=== PATIENT | female | born 1975 | race Caucasian/White ===

== ENCOUNTER 2018-07-14 07:32 | Emergency (ER) | payer SELFPAY ==
[2018-07-14 07:47] VITALS: BP 151/99
--- NOTE | 2018-07-14 08:07 | EDM.PDOC ---
ED HPI GENERAL MEDICAL PROBLEM - General Chief Complaint: Upper Extremity Injury/Pain Stated Complaint: FELL LEAVING WORK Time Seen by Provider: 07/14/18 07:56 Source of Information: Reports: Patient, RN Notes Reviewed History Limitations: Reports: No Limitations - History of Present Illness INITIAL COMMENTS - FREE TEXT/NARRATIVE: 42-year-old female presents emergency department today following a fall at work she was at the end of her shift had walked out into the employee parking lot slipped and fell on her left side she is complaining of left wrist pain some left shoulder stiffness left knee pain no other complaints denies any head injury or loss of consciousness Wrist Pain Score (Numeric/FACES): 4 - Related Data Allergies Allergy/AdvReac Type Severity Reaction Status Date / Time aspirin Allergy Swollen Verified 07/14/18 07:47 Eyes diclofenac Allergy Nausea Verified 07/14/18 07:47 NSAIDS (Non-Steroidal Allergy Swollen Verified 07/14/18 07:47 Anti-Inflamma Eyes Penicillins Allergy Rash Verified 07/14/18 07:47 Sulfa (Sulfonamide Allergy Rash Verified 07/14/18 07:47 Antibiotics) Home Meds: Home Meds Acetaminophen 1,000 mg PO Q6H 03/16/16 [History] Levonorgestrel [Mirena] 52 mg IN ASDIRECTED 03/16/16 [History] 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: - Musculoskeletal History: Reports: Osteoarthritis Other Musculoskeletal History: - - Infectious Disease History Infectious Disease History: Reports: Chicken Pox - Past Surgical History HEENT Surgical History: Reports: Tonsillectomy GI Surgical History: Reports: Cholecystectomy Musculoskeletal Surgical History: Reports: Arthroscopic Knee, Knee Replacement Social & Family History - Tobacco Use Smoking Status *Q: Never Smoker Second Hand Smoke Exposure: No - Caffeine Use Caffeine Use: Reports: Coffee - Alcohol Use Days Per Week of Alcohol Use: 1 Number of Drinks Per Day: 5 Total Drinks Per Week: 5 - Recreational Drug Use Recreational Drug Use: No Review of Systems - Review of Systems Review Of Systems: See Below Musculoskeletal: Reports: Shoulder Pain, Hand Pain, Joint Pain (Knee pain) Skin: Reports: No Symptoms ED EXAM, GENERAL - Physical Exam Exam: See Below Free Text/Narrative:: Examination left wrist I do not appreciate any edema there is no erythema noted she has full range of motion all digits radial pulses +2 she has limited range of motion of the wrist. Examination of the left erythema there is no edema there is no specific joint line tenderness anterior drawer is negative Lissa' s maneuvers also negative knee I don't appreciate any shoulder I don't appreciate any specific point tenderness she has full range of motion of shoulder, Exam Limited By: No Limitations General Appearance: Alert, WD/WN, No Apparent Distress Respiratory/Chest: No Respiratory Distress Course - Vital Signs Last Recorded V/S: Last Vital Signs Temp 96 F 07/14/18 07:46 Pulse 67 07/14/18 07:46 Resp 16 07/14/18 07:46 BP 151/99 H 07/14/18 07:46 Pulse Ox 98 07/14/18 07:46 Departure - Departure Time of Disposition: 08:07 Disposition: Home, Self-Care 01 Condition: Fair Clinical Impression: Left wrist sprain Qualifiers: Encounter type: initial encounter Qualified Code(s): S63.502A - Unspecified sprain of left wrist, initial encounter Contusion of left knee Qualifiers: Encounter type: initial encounter Qualified Code(s): S80.02XA - Contusion of left knee, initial encounter Contusion of left shoulder Qualifiers: Encounter type: initial encounter Qualified Code(s): S40.012A - Contusion of left shoulder, initial encounter - Discharge Information Referrals: PCP,None [Primary Care Provider] - Additional Instructions: use Tylenol as needed for pain control, try Flexeril as needed for muscle relaxant, Please followup with your primary care provider in 3-5 days if not better, please call return to the emergency department with worsening of symptoms. - Assessment/Plan Plan: Assessment Acuity = acute Site and laterality = left wrist sprain left knee contusion left shoulder contusion Etiology = secondary to a fall on ice Manifestations = pain Location of injury = work Lab values = left wrist x-ray negative for fracture Plan Use Tylenol as needed for pain control, Flexeril 10 mg by mouth 3 times a day when necessary total #15 given for muscle relaxant, follow-up primary care 3-5 days if no improvement This note was dictated using Chartio recognition software please call with any questions on syntax or grammar.
== END 2018-07-14 08:16 | disposition home or self-care (01) ==
LOC: JP.ED 07:32
DX: S63.502A Unspecified sprain of left wrist, initial encounter (principal); S80.02XA Contusion of left knee, initial encounter; S40.012A Contusion of left shoulder, initial encounter; Z88.8 Allergy status to other drugs, medicaments and biological substances; Z88.2 Allergy status to sulfonamides; Z88.0 Allergy status to penicillin; W19.XXXA Unspecified fall, initial encounter
CPT/HCPCS: 99283

== ENCOUNTER 2019-02-23 18:38 | Emergency (ER) | payer BC, OTHER ==
[2019-02-23] MEDS ORDERED: diphenhydrAMINE 50 MG/ML SDV IVPUSH ONE (18:54)
[2019-02-23] MEDS ORDERED: Acetaminophen 1,000 MG in Premix Bag 1 BAG IV ONE (18:54)
[2019-02-23] MEDS ORDERED: Lactated Ringers 1,000 ML IV ONE ×2 (18:54→20:29)
[2019-02-23] MEDS ORDERED: Prochlorperazine 10 MG/2 ML SDV IVPUSH ONE (18:54)
[2019-02-23] MEDS ORDERED: Sodium Chloride 0.9% 10 ML Syringe FLUSH PRN (18:55)
[2019-02-23] MEDS ORDERED: diphenhydrAMINE 50 MG/ML SDV ONE (19:00)
--- NOTE | 2019-02-23 19:00 | EDM.PDOC ---
ED HPI GENERAL MEDICAL PROBLEM - General Chief Complaint: Headache Stated Complaint: HEADACHE Time Seen by Provider: 02/23/19 18:54 Source of Information: Reports: Patient, RN Notes Reviewed History Limitations: Reports: No Limitations - History of Present Illness INITIAL COMMENTS - FREE TEXT/NARRATIVE: 43-year-old female presents emergency department today with complaint of headache, she states this feels like a migraine for her she has had migraines like this in the past however it is been a long time. Is predominantly on the right side she states it started earlier this morning is progressively gotten worse she is nauseated and does have photophobia did use Tylenol with minimal relief Headache Pain Score (Numeric/FACES): 8 - Related Data Allergies Allergy/AdvReac Type Severity Reaction Status Date / Time aspirin Allergy Swollen Verified 02/23/19 19:25 Eyes diclofenac Allergy Nausea Verified 02/23/19 19:25 NSAIDS (Non-Steroidal Allergy Swollen Verified 02/23/19 19:25 Anti-Inflamma Eyes Penicillins Allergy Rash Verified 02/23/19 19:25 Sulfa (Sulfonamide Allergy Rash Verified 02/23/19 19:25 Antibiotics) Home Meds: Home Meds Acetaminophen 1,000 mg PO Q6H 03/16/16 [History] Levonorgestrel [Mirena] 52 mg IN ASDIRECTED 03/16/16 [History] 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: - Musculoskeletal History: Reports: Osteoarthritis Other Musculoskeletal History: - - Infectious Disease History Infectious Disease History: Reports: Chicken Pox - Past Surgical History HEENT Surgical History: Reports: Tonsillectomy GI Surgical History: Reports: Cholecystectomy Musculoskeletal Surgical History: Reports: Arthroscopic Knee, Knee Replacement Social & Family History - Tobacco Use Smoking Status *Q: Never Smoker - Caffeine Use Caffeine Use: Reports: Coffee ED ROS GENERAL - Review of Systems Review Of Systems: See Below Constitutional: Denies: Fever, Chills HEENT: Reports: Eye Pain Respiratory: Reports: No Symptoms Cardiovascular: Reports: No Symptoms GI/Abdominal: Reports: Nausea : Reports: No Symptoms Neurological: Reports: Headache - Physical Exam Exam: See Below Exam Limited By: No Limitations General Appearance: Alert, Mild Distress Eye Exam: Bilateral Eye: EOMI, Normal Fundi, Normal Inspection, PERRL Throat/Mouth: No Airway Compromise Respiratory/Chest: No Respiratory Distress Course - Vital Signs Last Recorded V/S: Last Vital Signs Temp 96.3 F 02/23/19 19:17 Pulse 62 02/23/19 19:41 Resp 16 02/23/19 19:41 BP 143/87 H 02/23/19 19:41 Pulse Ox 98 02/23/19 19:41 - Orders/Labs/Meds Orders: Active Orders 24 hr Category Date Time Status Peripheral IV Care [RC] . DIRECTED Care 02/23/19 18:55 Active Sodium Chloride 0.9% [Saline Flush] Med 02/23/19 18:55 Active 10 ml FLUSH ASDIRECTED PRN Peripheral IV Insertion Adult [OM.PC] Urgent Oth 02/23/19 18:55 Ordered Medication Orders Sodium Chloride (Saline Flush) 10 ml FLUSH ASDIRECTED PRN PRN Reason: Keep Vein Open Last Admin: 02/23/19 19:07 Dose: 10 ml Meds: Medications Generic Name Dose Route Start Last Admin Trade Name Freq PRN Reason Stop Dose Admin Sodium Chloride 10 ml 02/23/19 18:55 02/23/19 19:07 Saline Flush FLUSH 10 ml ASDIRECTED PRN Administration Keep Vein Open Discontinued Medications Generic Name Dose Route Start Last Admin Trade Name Freq PRN Reason Stop Dose Admin Diphenhydramine HCl 50 mg 02/23/19 18:54 02/23/19 19:07 Benadryl IVPUSH 02/23/19 18:55 50 mg ONETIME ONE Administration Acetaminophen 1,000 mg/ Premix 100 mls @ 400 mls/hr 02/23/19 18:54 02/23/19 19:08 IV 02/23/19 19:08 400 mls/hr NOW ONE Administration Lactated Ringer's 1,000 mls @ 999 mls/hr 02/23/19 18:54 02/23/19 19:10 Ringers, Lactated IV 02/23/19 19:54 999 mls/hr BOLUS ONE Administration Lactated Ringer's 1,000 mls @ 999 mls/hr 02/23/19 20:29 02/23/19 20:15 Ringers, Lactated IV 02/23/19 21:29 999 mls/hr BOLUS ONE Administration Lorazepam 0.5 mg 02/23/19 21:23 02/23/19 21:31 Ativan IVPUSH 02/23/19 21:24 0.5 mg ONETIME ONE Administration Prochlorperazine Edisylate 5 mg 02/23/19 18:54 02/23/19 19:07 Compazine IVPUSH 02/23/19 18:55 5 mg ONETIME ONE Administration Departure - Departure Time of Disposition: 22:15 Disposition: Home, Self-Care 01 Condition: Fair Clinical Impression: Migraine - Discharge Information Instructions: Migraine Headache, [id number] Forms: ED Department Discharge Additional Instructions: Continue with regular medications, please followup with your primary care provider in 3-5 days if not better, please call return to the emergency department with worsening of symptoms. - My Orders Last 24 Hours: My Active Orders 02/23/19 18:55 Peripheral IV Care [RC] . DIRECTED Sodium Chloride 0.9% [Saline Flush] 10 ml FLUSH ASDIRECTED PRN Peripheral IV Insertion Adult [OM.PC] Urgent - Assessment/Plan Last 24 Hours: My Active Orders 02/23/19 18:55 Peripheral IV Care [RC] . DIRECTED Sodium Chloride 0.9% [Saline Flush] 10 ml FLUSH ASDIRECTED PRN Peripheral IV Insertion Adult [OM.PC] Urgent Plan: Assessment Acuity = acute Site and laterality = migraine type headache Etiology = unknown Manifestations = nausea Location of injury = Home Lab values = none Plan Good improvement to 2 L of fluid, Tylenol, Benadryl and Compazine as well as half milligram Ativan plans discharge home follow primary care as needed This note was dictated using Zuora voice recognition software please call with any questions on syntax or grammar.
[2019-02-23] MEDS ORDERED: Prochlorperazine 10 MG/2 ML SDV ONE (19:01)
[2019-02-23 19:41] VITALS: BP 143/87; PULSE 62
[2019-02-23] MEDS ORDERED: LORazepam 2 MG/ML SDV IVPUSH ONE (21:23)
== END 2019-02-23 22:35 | disposition home or self-care (01) ==
LOC: JP.ED 18:38
DX: G43.909 Migraine, unspecified, not intractable, without status migrainosus (principal); Z88.6 Allergy status to analgesic agent; Z88.0 Allergy status to penicillin; Z88.2 Allergy status to sulfonamides
CPT/HCPCS: 96361; 96365; 96375; 99284; J0131; J0780; J1200; J2060; J7120

== ENCOUNTER 2019-12-08 01:33 | Emergency (ER) | payer BC ==
[2019-12-08 01:44] VITALS: BP 149/90; PULSE 92
[2019-12-08] MEDS ORDERED: Tetracaine HCl/PF 0.5% 4 ML Bottle EYERT ONE (01:46)
[2019-12-08] MEDS ORDERED: Diphtheria,Pertussis(Acell),Tetanus Vaccine 0.5 ML SDV IM ONE (02:02)
[2019-12-08] MEDS ORDERED: Acetaminophen/oxyCODONE 325-5 MG Tab PO STA (02:02)
--- NOTE | 2019-12-08 02:08 | EDM.PDOC ---
ED HPI GENERAL MEDICAL PROBLEM - General Chief Complaint: Eye Problems Stated Complaint: SCRATCHED EYE Time Seen by Provider: 12/08/19 01:50 Source of Information: Reports: Patient, Old Records, RN History Limitations: Reports: No Limitations - History of Present Illness INITIAL COMMENTS - FREE TEXT/NARRATIVE: 44 yo female scratched her R eye tonight. Presents with pain and tearing and photophobia. Last tetanus was 7 yrs ago. 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) (none) - Related Data Allergies Allergy/AdvReac Type Severity Reaction Status Date / Time aspirin Allergy Swollen Verified 12/08/19 01:39 Eyes diclofenac Allergy Nausea Verified 12/08/19 01:39 NSAIDS (Non-Steroidal Allergy Swollen Verified 12/08/19 01:39 Anti-Inflamma Eyes Penicillins Allergy Rash Verified 12/08/19 01:39 Sulfa (Sulfonamide Allergy Rash Verified 12/08/19 01:39 Antibiotics) Home Meds: Home Meds Acetaminophen 1,000 mg PO Q6H PRN 03/16/16 [History] Levonorgestrel [Mirena] 52 mg IN ASDIRECTED 03/16/16 [History] 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: - Musculoskeletal History: Reports: Osteoarthritis Other Musculoskeletal History: - - Infectious Disease History Infectious Disease History: Reports: Chicken Pox - Past Surgical History HEENT Surgical History: Reports: Tonsillectomy GI Surgical History: Reports: Cholecystectomy Musculoskeletal Surgical History: Reports: Arthroscopic Knee, Knee Replacement Social & Family History - Caffeine Use Caffeine Use: Reports: Coffee ED ROS GENERAL - Review of Systems Review Of Systems: See Below Constitutional: Reports: No Symptoms HEENT: Reports: Eye Discharge (watering), Eye Pain (right eye), Vision Change (slight blurring of the R eye) Skin: Reports: No Symptoms Neurological: Reports: No Symptoms ED EXAM GENERAL W FULL EYE - Physical Exam Exam: See Below Exam Limited By: No Limitations General Appearance: Alert, WD/WN, No Apparent Distress Eye Exam: Right Eye: Corneal Abrasion (upper cornea, horizontal scratch), Bilateral Eye: EOMI, PERRL Eyelids: Bilateral: Normal Appearance Conjunctiva & Sclera: Right: Injected Cornea Exam: Right: Corneal Abrasion, Examined with Flourescein Extraocular Movements: Bilateral: Intact Pupillary Size: Bilateral: 3 mm Ears: Hearing Grossly Normal Course - Vital Signs Last Recorded V/S: Last Vital Signs Temp 36.2 C 12/08/19 01:55 Pulse 92 12/08/19 01:55 Resp 16 12/08/19 01:55 BP 149/90 H 12/08/19 01:55 Pulse Ox 100 12/08/19 01:55 - Orders/Labs/Meds Orders: Active Orders 24 hr Category Date Time Status Vaccines to be Administered [RC] PER UNIT ROUTINE Care 12/08/19 02:02 Ordered Acetaminophen/oxyCODONE [Percocet 325-5 MG] Med 12/08/19 02:02 Stat 1 tab PO ONETIME STA Diphth,Pertuss(Acell),Tet Vac [Adacel] Med 12/08/19 02:02 Once 0.5 ml IM .ONCE ONE Meds: Medications Discontinued Medications Generic Name Dose Route Start Last Admin Trade Name Freq PRN Reason Stop Dose Admin Tetracaine HCl 1 ml 12/08/19 01:46 12/08/19 01:52 Tetracaine 0.5% Steri-Unit [place] EYERT 12/08/19 01:47 2 drop ASDIRECTED ONE Administration Departure - Departure Time of Disposition: 02:15 Disposition: Home, Self-Care 01 Condition: Good Clinical Impression: Corneal abrasion, right Qualifiers: Encounter type: initial encounter Qualified Code(s): S05.01XA - Injury of conjunctiva and corneal abrasion without foreign body, right eye, initial encounter - Discharge Information *PRESCRIPTION DRUG MONITORING PROGRAM REVIEWED*: No *COPY OF PRESCRIPTION DRUG MONITORING REPORT IN PATIENT LORENE: No Instructions: Corneal Abrasion, [id number] Referrals: China Bobo MD [Primary Care Provider] - Additional Instructions: Avoid rubbing your right eye. Avoid lights. Take acetaminophen OR Percocet as needed for pain relief. Apply antibiotic ointment as directed on your Rx for 2 days only. Recheck if not fully healed in 48 hrs. Sepsis Event Note (ED) - Evaluation Sepsis Screening Result: No Definite Risk - Focused Exam Vital Signs: Vital Signs Temp Pulse Resp BP Pulse Ox 12/08/19 01:55 36.2 C 92 16 149/90 H 100 12/08/19 01:42 92 16 149/90 H 100 - My Orders Last 24 Hours: My Active Orders 12/08/19 02:02 Vaccines to be Administered [RC] PER UNIT ROUTINE Diphth,Pertuss(Acell),Tet Vac [Adacel] 0.5 ml IM .ONCE ONE 12/08/19 02:02 Acetaminophen/oxyCODONE [Percocet 325-5 MG] 1 tab PO ONETIME STA - Assessment/Plan Last 24 Hours: My Active Orders 12/08/19 02:02 Vaccines to be Administered [RC] PER UNIT ROUTINE Diphth,Pertuss(Acell),Tet Vac [Adacel] 0.5 ml IM .ONCE ONE 12/08/19 02:02 Acetaminophen/oxyCODONE [Percocet 325-5 MG] 1 tab PO ONETIME STA
== END 2019-12-08 02:21 | disposition home or self-care (01) ==
LOC: JP.ED 01:33
DX: S05.01XA Injury of conjunctiva and corneal abrasion without foreign body, right eye, initial encounter (principal); Z23 Encounter for immunization; Z88.8 Allergy status to other drugs, medicaments and biological substances; Z88.6 Allergy status to analgesic agent; Z88.0 Allergy status to penicillin; Z88.2 Allergy status to sulfonamides; X58.XXXA Exposure to other specified factors, initial encounter
CPT/HCPCS: 90471; 90715; 99283; A9270

== ENCOUNTER 2020-06-27 16:26 | Emergency (ER) | payer BC ==
[2020-06-27 16:39] VITALS: BP 179/92; PULSE 84
[2020-06-27] MEDS ORDERED: Sodium Chloride 0.9% 1,000 ML IV ONE (17:02)
[2020-06-27] MEDS ORDERED: Sodium Chloride 0.9% 10 ML Syringe FLUSH PRN (17:02)
[2020-06-27] MEDS ORDERED: Morphine 4 MG/ML Syringe IVPUSH ONE (17:02)
[2020-06-27] MEDS ORDERED: Promethazine 12.5 MG in Sodium Chloride 0.9% 50 ML IV ONE (17:03)
--- NOTE | 2020-06-27 18:08 | EDM.PDOC ---
ED HPI GENERAL MEDICAL PROBLEM - General Chief Complaint: Headache Stated Complaint: HEAD PAIN Time Seen by Provider: 06/27/20 16:49 Source of Information: Reports: Patient History Limitations: Reports: No Limitations - History of Present Illness INITIAL COMMENTS - FREE TEXT/NARRATIVE: Patient with known history of migraine HAs recently noted change in her HAs this past year. 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 if she gets HAs she is to take her neurontin as well as maxalt if needed. She does not take NSAIDs due to allergy (makes her face/eyes swell). She woke up with RODRIGUEZ took meds and waited for her son to get home from school to bring her to the ER since RODRIGUEZ was so severe. She states that its not better/not worse since taking medications. 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: Acetaminophen (1000mg at 1500), Cold Therapy, Other (see below) (200mg neurontin, 4mg zofran, maxalt x 1--all at 1500 as she woke up from sleep with headache) Headache Pain Score (Numeric/FACES): 8 - Related Data Allergies Allergy/AdvReac Type Severity Reaction Status Date / Time aspirin Allergy Swollen Verified 12/08/19 01:39 Eyes diclofenac Allergy Nausea Verified 12/08/19 01:39 NSAIDS (Non-Steroidal Allergy Swollen Verified 12/08/19 01:39 Anti-Inflamma Eyes Penicillins Allergy Rash Verified 12/08/19 01:39 Sulfa (Sulfonamide Allergy Rash Verified 12/08/19 01:39 Antibiotics) cinnamon Allergy Anaphylactic Uncoded 06/27/20 16:40 Shock Home Meds: Home Meds Acetaminophen 1,000 mg PO Q6H PRN 03/16/16 [History] Levonorgestrel [Mirena] 52 mg IN ASDIRECTED 03/16/16 [History] Gabapentin [Neurontin] 3 tab PO BEDTIME 06/27/20 [History] Ondansetron [Zofran ODT] 1 tab PO TID PRN 06/27/20 [History] Rizatriptan [Maxalt MANAGER CONTACT] 1 tab SL ASDIRECTED 06/27/20 [History] 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: - Musculoskeletal History: Reports: Osteoarthritis Other Musculoskeletal History: - Neurological History: Reports: Other (See Below) Other Neuro History: known mass with recent mri - Infectious Disease History Infectious Disease History: Reports: Chicken Pox - Past Surgical History HEENT Surgical History: Reports: Tonsillectomy GI Surgical History: Reports: Cholecystectomy Musculoskeletal Surgical History: Reports: Arthroscopic Knee, Knee Replacement Other Musculoskeletal Surgeries/Procedures:: - Social & Family History - Tobacco Use Tobacco Use Status *Q: Never Tobacco User - Caffeine Use Caffeine Use: Reports: Coffee ED ROS GENERAL - Review of Systems Review Of Systems: Comprehensive ROS is negative, except as noted in HPI. Constitutional: Reports: No Symptoms HEENT: Reports: Vision Change (photophobia) Respiratory: Reports: No Symptoms Cardiovascular: Reports: No Symptoms Endocrine: Reports: No Symptoms GI/Abdominal: Reports: Nausea, Vomiting : Reports: No Symptoms Musculoskeletal: Reports: No Symptoms Skin: Reports: No Symptoms Neurological: Reports: Headache. Denies: Confusion, Dizziness, Trouble Speaking, Difficulty Walking, Change in Speech, Gait Disturbance Psychiatric: Reports: No Symptoms Hematologic/Lymphatic: Reports: No Symptoms Immunologic: Reports: No Symptoms - Physical Exam Exam: See Below Exam Limited By: No Limitations General Appearance: Alert, Moderate Distress Eye Exam: Bilateral Eye: EOMI, Normal Inspection, PERRL Ears: Normal External Exam Nose: Normal Inspection Throat/Mouth: Normal Inspection, Normal Oropharynx Head Exam: Atraumatic, Normocephalic Neck: Normal Inspection, Supple, Full Range of Motion Respiratory/Chest: No Respiratory Distress, Lungs Clear, Normal Breath Sounds, No Accessory Muscle Use Cardiovascular: Normal Peripheral Pulses, Regular Rate, Rhythm, No Edema, No Murmur GI/Abdominal: Normal Bowel Sounds, Soft, Non-Tender, No Distention (Female) Exam: Deferred Rectal (Female) Exam: Deferred Neuro Exam (Abbreviated): Alert, Oriented, CN II-XII Intact, Normal Cognition, No Motor/Sensory Deficits Extremities: Normal Inspection, Normal Range of Motion, No Pedal Edema, Normal Capillary Refill Psychiatric: Normal Affect, Normal Mood Skin Exam: Warm, Dry, Intact, Normal Color Course - Vital Signs Text/Narrative:: 1800--patient recheck, improved now with pain 3-07/12. she states she would like to receive remaining IVF for full liter. ready for d/c once completed, f/u with PCM or Neurology if further concerns Last Recorded V/S: Last Vital Signs Temp 97.5 F 06/27/20 16:48 Pulse 84 06/27/20 16:48 Resp 20 06/27/20 16:48 BP 179/92 H 06/27/20 16:48 Pulse Ox 99 06/27/20 16:48 - Orders/Labs/Meds Orders: Active Orders 24 hr Category Date Time Status Sodium Chloride 0.9% [Normal Saline] 1,000 ml Med 06/27/20 17:02 Active IV .BOLUS Sodium Chloride 0.9% [Saline Flush] Med 06/27/20 17:02 Active 10 ml FLUSH ASDIRECTED PRN Saline Lock Insert [OM.PC] Routine Oth 06/27/20 17:02 Ordered Medication Orders Sodium Chloride (Normal Saline) 1,000 mls @ 999 mls/hr IV .BOLUS ONE Stop: 06/27/20 18:02 Last Admin: 06/27/20 17:25 Dose: 999 mls/hr Documented by: ROBIN Sodium Chloride (Sodium Chloride 0.9% 10 Ml Syringe) 10 ml FLUSH ASDIRECTED PRN PRN Reason: Keep Vein Open Last Admin: 06/27/20 17:26 Dose: 10 ml Documented by: ROBIN Meds: Medications Generic Name Dose Route Start Last Admin Trade Name Freq PRN Reason Stop Dose Admin Sodium Chloride 1,000 mls @ 999 mls/hr 06/27/20 17:02 06/27/20 17:25 Normal Saline IV 06/27/20 18:02 999 mls/hr .BOLUS ONE Administration Sodium Chloride 10 ml 06/27/20 17:02 06/27/20 17:26 Sodium Chloride 0.9% 10 Ml Syringe FLUSH 10 ml ASDIRECTED PRN Administration Keep Vein Open Discontinued Medications Generic Name Dose Route Start Last Admin Trade Name Freq PRN Reason Stop Dose Admin Promethazine HCl 12.5 mg/ 50.5 mls @ 200 mls/hr 06/27/20 17:03 06/27/20 17:25 Sodium Chloride IV 06/27/20 17:18 200 mls/hr ONETIME ONE Administration Morphine Sulfate 4 mg 06/27/20 17:02 06/27/20 17:25 Morphine 4 Mg/Ml Syringe IVPUSH 06/27/20 17:03 4 mg ONETIME ONE Administration Departure - Departure Time of Disposition: 18:12 Disposition: Home, Self-Care 01 Condition: Good Clinical Impression: Headache, migraine - Discharge Information *PRESCRIPTION DRUG MONITORING PROGRAM REVIEWED*: Not Applicable *COPY OF PRESCRIPTION DRUG MONITORING REPORT IN PATIENT LORENE: Not Applicable Instructions: Recurrent Migraine Headache, [id number] Referrals: China Bobo MD [Primary Care Provider] - Additional Instructions: Follow up with family doctor or neurology for further concerns, return to the ER if symptoms re-occur Sepsis Event Note (ED) - Evaluation Sepsis Screening Result: No Definite Risk - Focused Exam Vital Signs: Vital Signs Temp Pulse Resp BP Pulse Ox 06/27/20 16:48 97.5 F 84 20 179/92 H 99 06/27/20 16:37 97.5 F 84 20 179/92 H 99 - My Orders Last 24 Hours: My Active Orders 06/27/20 17:02 Sodium Chloride 0.9% [Normal Saline] 1,000 ml IV .BOLUS Sodium Chloride 0.9% [Saline Flush] 10 ml FLUSH ASDIRECTED PRN Saline Lock Insert [OM.PC] Routine - Assessment/Plan Last 24 Hours: My Active Orders 06/27/20 17:02 Sodium Chloride 0.9% [Normal Saline] 1,000 ml IV .BOLUS Sodium Chloride 0.9% [Saline Flush] 10 ml FLUSH ASDIRECTED PRN Saline Lock Insert [OM.PC] Routine
== END 2020-06-27 18:50 | disposition home or self-care (01) ==
LOC: JP.ED 16:26
DX: G43.909 Migraine, unspecified, not intractable, without status migrainosus (principal); M19.90 Unspecified osteoarthritis, unspecified site; Z88.6 Allergy status to analgesic agent; Z88.0 Allergy status to penicillin; Z88.2 Allergy status to sulfonamides; Z88.8 Allergy status to other drugs, medicaments and biological substances; Z79.899 Other long term (current) drug therapy; Z90.49 Acquired absence of other specified parts of digestive tract
CPT/HCPCS: 96374; 96375; 99283; 99283-25; J2270; J2550; J7030

== ENCOUNTER 2021-07-07 13:39 | Emergency (ER) | payer BC ==
[2021-07-07] MEDS ORDERED: Lactated Ringers 1,000 ML IV ONE ×2 (13:55→14:34)
[2021-07-07] MEDS ORDERED: diphenhydrAMINE 50 MG/ML SDV IVPUSH ONE (13:55)
[2021-07-07] MEDS ORDERED: Prochlorperazine 10 MG/2 ML SDV IVPUSH ONE (13:55)
[2021-07-07] MEDS ORDERED: Sodium Chloride 0.9% 10 ML Syringe FLUSH PRN (13:55)
[2021-07-07] MEDS ORDERED: LORazepam 2 MG/ML SDV IVPUSH ONE (13:55)
[2021-07-07 15:03] VITALS: BP 132/81; PULSE 67
== END 2021-07-07 15:59 | disposition home or self-care (01) ==
LOC: JP.ED 13:39
DX: G43.909 Migraine, unspecified, not intractable, without status migrainosus (principal); Z88.6 Allergy status to analgesic agent; Z88.0 Allergy status to penicillin; Z88.2 Allergy status to sulfonamides; Z88.8 Allergy status to other drugs, medicaments and biological substances; Z91.018 Allergy to other foods
CPT/HCPCS: 96374; 96375; 99283; 99283-25; J0780; J1200; J2060; J3490; J7120

== ENCOUNTER 2023-07-18 04:24 | Day surgery (SDC) | payer BC ==
[2023-07-18 04:44] LABS: BASOPHILS ABSOLUTE AUTO 0.05 K/uL (0.00-0.10); BASOPHILS PERCENT AUTO 0.9 % (0.1-1.3); EOSINOPHILS ABSOLUTE AUTO 0.14 K/uL (0.00-0.40); EOSINOPHILS PERCENT AUTO 2.6 % (0.0-5.4); HEMATOCRIT 42.7 % (34.3-46.0); HEMOGLOBIN 15.3 g/dL (11.2-15.5); IMMATURE GRAN PERCENT AUTO 0.2 % (0.0-0.7); LYMPHOCYTES ABSOLUTE AUTO 1.68 K/uL (0.8-3.3); LYMPHOCYTES PERCENT AUTO 31.4 % (11.4-47.7); MEAN CORPUSCULAR HEMOGLOBIN 32.6 pg (31.6-35.5); MEAN CORPUSCULAR HGB CONC 35.8 g/dL (31.6-35.5); MEAN CORPUSCULAR VOLUME 90.9 fL (81.4-99.0); MONOCYTES ABSOLUTE AUTO 0.57 K/uL (0.20-0.90); MONOCYTES PERCENT AUTO 10.7 % (3.3-12.6); NEUTROPHILS PERCENT AUTO 54.2 % (40.0-78.1); PLATELET COUNT,PLT 267 K/uL (130-375); WHITE BLOOD CELL COUNT,WBC 5.4 K/uL (3.2-11.0)
[2023-07-18 04:51] LABS: IMMATURE GRAN ABSOLUTE AUTO 0.01 K/uL (0.00-0.23)
[2023-07-18] MEDS: Alum Hydrox/Mag Hydrox/Simeth 15 ML, Lidocaine 2% 15 ML PO STA (04:51)
[2023-07-18] MEDS ORDERED: Naloxone 0.4 MG/ML SDV IVPUSH PRN (04:53)
[2023-07-18] MEDS: Ondansetron 4 MG/2 ML SDV IVPUSH ONE (04:57)
[2023-07-18] MEDS: Sodium Chloride 0.9% 10 ML Syringe FLUSH PRN (04:58)
[2023-07-18 05:00] LABS: A/G RATIO 1.2 (1.2-2.2); ALANINE AMINOTRANSFERASE,ALT 28 U/L (12-78); ALBUMIN 3.9 g/dL (3.4-5.0); ALKALINE PHOSPHATASE 83 U/L (46-116); ASPARTATE AMNIOTRANSFERASE,AST 24 U/L (15-37); BILIRUBIN TOTAL 0.6 mg/dL (0.2-1.0); BLOOD UREA NITROGEN,BUN 11 mg/dL (7-18); CARBON DIOXIDE,CO2 24 mmol/L (21-32); CHLORIDE,CL 105 mmol/L (100-108); CREATININE 0.8 mg/dL (0.6-1.0); ESTIMATED GFR 92 mL/min (>60); GLUCOSE RANDOM 94 mg/dL (74-106); POTASSIUM,K 3.5 mmol/L (3.6-5.2); PROTEIN TOTAL,TP 7.2 g/dL (6.4-8.2); SODIUM,NA 140 mmol/L (140-148)
[2023-07-18 05:03] LABS: ANION GAP 14.5 mmol/L (5.0-14.0)
[2023-07-18] MEDS: HYDROmorphone 0.5 MG/0.5 ML Syringe IVPUSH ONE ×2 (05:03→05:37)
[2023-07-18] MEDS: HYDROmorphone 0.5 MG/0.5 ML Syringe IM ONE (05:03)
[2023-07-18] MEDS: Pantoprazole 40 MG Vial IVPUSH STA (05:09)
[2023-07-18] MEDS: Sodium Chloride 0.9% 1,000 ML IV SCH (05:38)
[2023-07-18] MEDS: HYDROmorphone 1 MG/ML Syringe IVPUSH STA (05:47)
[2023-07-18] MEDS: Sodium Chloride 0.9% 10 ML Syringe FLUSH ONE (06:08)
[2023-07-18] MEDS: Iopamidol 612 MG/ML 100 ML Bottle IV SCH (06:08)
[2023-07-18] MEDS: Sodium Chloride 0.9% 80 ML IV SCH (06:08)
[2023-07-18] MEDS: Alum Hydrox/Mag Hydrox/Simeth 15 ML, Lidocaine 2% 15 ML PO ONE (06:13)
[2023-07-18] MEDS: Metoclopramide 10 MG/2 ML SDV IVPUSH PRN (08:05)
[2023-07-18] MEDS: HYDROmorphone 1 MG/ML Syringe IVPUSH ONE (09:38)
[2023-07-18] MEDS: droPERidol 5 MG/2 ML SDV IVPUSH ONE (12:04)
[2023-07-18] MEDS ORDERED: fentaNYL 100 MCG/2 ML SDV ONE (12:05)
[2023-07-18] MEDS ORDERED: Midazolam 1 MG/ML 2 ML SDV ONE (12:05)
[2023-07-18] MEDS ORDERED: Propofol 200 MG/20 ML SDV ONE (12:05)
[2023-07-18 14:20] VITALS: BP 117/71; PULSE 55
[2023-07-18] MEDS: Hyoscyamine 0.125 MG Tab.SL SL ONE (15:38)
== END 2023-07-18 15:15 | disposition other institution (70) ==
LOC: JP.ED 04:24 → JP.SDS 11:57
PROVIDERS: ATTEND Surgery
DX: K29.50 Unspecified chronic gastritis without bleeding (principal); K22.70 Barrett's esophagus without dysplasia; K22.89 Other specified disease of esophagus; I10 Essential (primary) hypertension; K21.9 Gastro-esophageal reflux disease without esophagitis; Z88.0 Allergy status to penicillin; Z88.2 Allergy status to sulfonamides; Z88.6 Allergy status to analgesic agent
CPT/HCPCS: 36415; 43239; 74177; 74181; 80053; 83690; 84484; 85025; 85379; 88305; 96361; 96374; 96375; 96376; 99285; A9270; C9113; J1170; J1790; J2250; J2405; J2704; J2765; J3010; J3490; J7030; Q9967